=== PATIENT | female | born 1980 | race Hispanic/Latino ===

== ENCOUNTER 2017-05-27 12:52 | Outpatient (CLI) | payer OTHER ==
--- NOTE | 2017-05-27 15:13 | ULT ---
THYROID ULTRASOUND: Date: 05/27/17 HISTORY: Thyroid cyst. FINDINGS: Real-time imaging of the right and left lobes of the thyroid gland performed. The right lobe measures 1.3 x 1.5 x 4.5 cm. The left lobe measures 1.3 x 1.7 x 4.5 cm. Within the left lobe is a hypoechoic slightly complex 5.0 mm nodule which appears to be a complex cyst, may represent a colloid-type cyst. IMPRESSION: Small hypoechoic nodule measuring 4.0 x 5.0 mm in the left lobe of the thyroid. POS: [facility]
== END 2017-05-27 12:53 | disposition home or self-care (01) ==
LOC: MADRAD 12:52
PROVIDERS: ATTEND Family Medicine
DX: E04.1 Nontoxic single thyroid nodule (principal)
CPT/HCPCS: 76536

== ENCOUNTER 2017-11-08 10:04 | Outpatient (CLI) | payer OTHER ==
--- NOTE | 2017-11-08 12:52 | ULT ---
THYROID ULTRASOUND: HISTORY: Thyroid nodules. FINDINGS: Multiple longitudinal and transverse images of the thyroid gland were obtained using a multihertz yue ear ray transducer. Real-time and color flow images obtained. Comparison is made to a previous exam from 05/27/17. Sonographic evaluation of the hyoid gland demonstrates the right thyroid lobe to be unremarkable with no evidence of masses or lesions. The right thyroid lobe measures 4.7 x 1.5 x 1.0 cm. The left lobe measures 3.3 x 1.8 x 1.3 cm. There is a small hypoechoic lesion with diameter measurin g approximately 4.5 x 3.7 mm. This appears to have some internal echoes and small focus of hyperecho genicity compatible with calcifications. This is stable and unchanged since the previous comparison ultrasound. IMPRESSION: Complete left thyroid lesion stable since the previous comparison ultrasound from April of 2017. POS: [facility]
== END 2017-11-08 10:05 | disposition home or self-care (01) ==
LOC: MADULT 10:04
PROVIDERS: ATTEND Family Medicine
DX: E04.1 Nontoxic single thyroid nodule (principal)
CPT/HCPCS: 76536